=== PATIENT | female | born 2000 | race Caucasian/White ===

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

== ENCOUNTER 2018-01-05 11:50 | Emergency (ER) | payer OTHER ==
[2018-01-05 13:49] LABS: AMORPHOUS SEDIMENT RFX SMALL (NEGATIVE); KETONE, URINE AUTO RFX NEGATIVE (NEGATIVE); MUCUS, URINE RFX SMALL (NEGATIVE); NITRITE, URINE AUTO RFX NEGATIVE (NEGATIVE); RBC, URINE AUTO RFX 2 /HPF (0-3); SPECIFIC GRAVITY UR AUTO RFX 1.021 (1.002-1.035); SQUAM EPITHELIAL CELL UR AURFX 4 /HPF (0-6); WBC, URINE AUTO RFX 2 /HPF (0-3)
[2018-01-05 13:50] LABS: BASO % 0.2 % (0.0-1.0); EOS # 0.2 10^3/uL (0.0-0.50); EOS % 1.9 % (0.0-3.0); HEMATOCRIT 36.9 % (36.0-47.0); HEMOGLOBIN 12.2 g/dl (12.0-16.0); IMMATURE GRANULOCYTE % 0.3 % (0-3.0); LYMPH % 17.1 % (24.0-44.0); MEAN CORPUSCULAR HGB CONC 33.1 g/dl (32.0-36.5); MEAN CORPUSCULAR VOLUME 78.5 fl (80.0-96.0); MONO # 0.7 10^3/uL (0.0-0.8); MONO % 5.7 % (0.0-5.0); NEUTROPHILS # 8.8 10^3/uL (1.8-7.7); NEUTROPHILS % 74.8 % (36.0-66.0); PLATELET COUNT, AUTOMATED 252 10^3/uL (150-450); RED CELL DISTRIBUTION WIDTH 13.6 % (11.5-14.5); WHITE BLOOD COUNT 11.8 10^3/uL (4.0-10.0)
[2018-01-05] MEDS: NS 1,000 ML IV (13:56)
[2018-01-05 14:41] LABS: ALBUMIN 3.4 GM/DL (3.2-5.2); ALBUMIN/GLOBULIN RATIO 0.89 (1.00-1.93); ALKALINE PHOSPHATASE 62 U/L (45-117); ALT/SGPT 16 U/L (12-78); ANION GAP 10 MEQ/L (8-16); AST/SGOT 16 U/L (7-37); BILIRUBIN,DIRECT < 0.1 MG/DL (0.0-0.2); BILIRUBIN,TOTAL 0.2 MG/DL (0.2-1.0); BLOOD UREA NITROGEN 9 MG/DL (7-18); CALCIUM LEVEL 8.8 MG/DL (8.5-10.1); CARBON DIOXIDE LEVEL 24 MEQ/L (21-32); CHLORIDE LEVEL 104 MEQ/L (98-107); GLUCOSE, FASTING 86 MG/DL (70-100); HCG, SERUM QUANTITATIVE 28363 MIU/ML; POTASSIUM SERUM 3.3 MEQ/L (3.5-5.1); SODIUM LEVEL 138 MEQ/L (136-145); TOTAL PROTEIN 7.2 GM/DL (6.4-8.2)
[2018-01-05 14:45] LABS: LEUKOCYTE ESTERASE UR AUTO RFX 2+ (NEGATIVE)
== END 2018-01-05 14:59 | disposition home or self-care (01) ==
LOC: M ED 11:50
DX: O99.282 Endocrine, nutritional and metabolic diseases complicating pregnancy, second trimester (principal); E86.0 Dehydration; Z3A.15 15 weeks gestation of pregnancy
CPT/HCPCS: 80076

== ENCOUNTER 2018-03-20 19:35 | Outpatient (CLI) | payer OTHER | END 2018-03-20 21:00 | disposition home or self-care (01) | LOC: M LDO 19:35 | DX: O47.02 False labor before 37 completed weeks of gestation, second trimester (principal); Z3A.26 26 weeks gestation of pregnancy | CPT/HCPCS: G0463 ==

== ENCOUNTER 2018-05-03 12:46 | Outpatient (CLI) | payer OTHER ==
[2018-05-03] MEDS ORDERED: LR 1,000 ML IV (13:30)
[2018-05-03] MEDS: LR 500 ML IV (13:43)
[2018-05-03] MEDS ORDERED: ONDANSETRON 4MG/2ML VIAL (J2405) IV (13:45)
== END 2018-05-03 15:39 | disposition home or self-care (01) ==
LOC: M LDO 12:46
DX: O99.89 Other specified diseases and conditions complicating pregnancy, childbirth and the puerperium (principal); Z3A.32 32 weeks gestation of pregnancy; R11.2 Nausea with vomiting, unspecified; R42 Dizziness and giddiness; R19.7 Diarrhea, unspecified; O99.613 Diseases of the digestive system complicating pregnancy, third trimester
CPT/HCPCS: 59025

== ENCOUNTER 2018-05-26 12:35 | Outpatient (CLI) | payer OTHER | END 2018-05-26 14:35 | disposition home or self-care (01) | LOC: M LDO 12:35 | DX: O26.893 Other specified pregnancy related conditions, third trimester (principal); Z3A.35 35 weeks gestation of pregnancy; O99.343 Other mental disorders complicating pregnancy, third trimester; O99.613 Diseases of the digestive system complicating pregnancy, third trimester; F32.9 Major depressive disorder, single episode, unspecified; K21.9 Gastro-esophageal reflux disease without esophagitis; O98.313 Other infections with a predominantly sexual mode of transmission complicating pregnancy, third trimester | CPT/HCPCS: 59025 ==

== ENCOUNTER 2018-06-24 04:19 | Outpatient (CLI) | payer OTHER | END 2018-06-24 05:55 | disposition home or self-care (01) | LOC: M LDO 04:19 | DX: O47.1 False labor at or after 37 completed weeks of gestation (principal); Z3A.39 39 weeks gestation of pregnancy | CPT/HCPCS: 59025 ==

== ENCOUNTER 2018-06-24 07:15 | Outpatient (CLI) | payer OTHER | END 2018-06-24 08:54 | disposition home or self-care (01) | LOC: M LDO 07:15 | DX: O47.1 False labor at or after 37 completed weeks of gestation (principal); Z3A.39 39 weeks gestation of pregnancy; O99.343 Other mental disorders complicating pregnancy, third trimester; O98.313 Other infections with a predominantly sexual mode of transmission complicating pregnancy, third trimester; A74.9 Chlamydial infection, unspecified; O99.613 Diseases of the digestive system complicating pregnancy, third trimester; K21.9 Gastro-esophageal reflux disease without esophagitis; O99.820 Streptococcus B carrier state complicating pregnancy | CPT/HCPCS: 59025 ==

== ENCOUNTER 2018-10-07 12:20 | Emergency (ER) | payer OTHER ==
[2018-10-07 12:48] LABS: KETONE, URINE AUTO RFX NEGATIVE (NEGATIVE); MUCUS, URINE RFX SMALL (NEGATIVE); NITRITE, URINE AUTO RFX NEGATIVE (NEGATIVE); RBC, URINE AUTO RFX 2 /HPF (0-3); SPECIFIC GRAVITY UR AUTO RFX 1.018 (1.002-1.035); SQUAM EPITHELIAL CELL UR AURFX 2 /HPF (0-6)
[2018-10-07 12:55] LABS: LEUKOCYTE ESTERASE UR AUTO RFX 2+ (NEGATIVE); WBC, URINE AUTO RFX 11 /HPF (0-3)
[2018-10-07] MEDS: AZITHROMYCIN 250 MG TAB PO (15:48)
[2018-10-07] MEDS: cefTRIAXone SOD 250 MG VIAL (J0696) IM (15:49)
[2018-10-07 16:24] LABS: CHLAMYDIA DNA AMPLIFICATION NEGATIVE (NEGATIVE); GC DNA AMPLIFICATION NEGATIVE (NEGATIVE)
== END 2018-10-07 15:53 | disposition home or self-care (01) ==
LOC: M ED 12:20
DX: N30.90 Cystitis, unspecified without hematuria (principal); N89.8 Other specified noninflammatory disorders of vagina; F33.9 Major depressive disorder, recurrent, unspecified
CPT/HCPCS: J0696

== ENCOUNTER 2018-12-14 10:47 | Emergency (ER) | payer OTHER ==
[~2018-12-14] VITALS: Ht 165.1 cm; Wt 76.4 kg
[~2018-12-14 10:47] MED LIST: ANUS2.5C2 TOP; BENA25CA4 PO; CIPR-249 PO; COLA100C5 PO; DIBU1OIN TOP; DIFL150T PO; IBUP-1114 PO; KEFL500C17 PO; MAPA500T2 PO; MOM30SS PO; PREN1TAB11 PO; PREN29TA4 PO; ZOFR4TAB14 PO; cranberry PO
[2018-12-14] MEDS ORDERED: NS 1,000 ML IV ONE (11:00)
[2018-12-14 11:19] LABS: BASO % 0.3 % (0.0-1.0); EOS # 0.1 10^3/uL (0.0-0.50); EOS % 1.2 % (0.0-3.0); HEMOGLOBIN 12.8 g/dl (12.0-15.5); LYMPH # 1.7 10^3/uL (1.5-6.5); LYMPH % 27.8 % (24.0-44.0); MEAN CORPUSCULAR HEMOGLOBIN 25.6 pg (27.0-33.0); MONO # 0.4 10^3/uL (0.0-0.8); MONO % 7.2 % (0.0-5.0); NEUTROPHILS # 3.8 10^3/uL (1.8-7.7); NEUTROPHILS % 63.3 % (36.0-66.0); PLATELET COUNT, AUTOMATED 265 10^3/uL (150-450)
[2018-12-14 11:59] LABS: ALBUMIN 3.6 GM/DL (3.2-5.2); ALT/SGPT 17 U/L (12-78); BILIRUBIN,TOTAL 0.4 MG/DL (0.2-1.0); BLOOD UREA NITROGEN 10 MG/DL (7-18); CALCIUM LEVEL 8.9 MG/DL (8.5-10.1); CARBON DIOXIDE LEVEL 25 MEQ/L (21-32); CHLORIDE LEVEL 106 MEQ/L (98-107); CREATININE FOR GFR 0.48 MG/DL (0.55-1.30); GLUCOSE, FASTING 78 MG/DL (70-100); HCG, SERUM QUANTITATIVE 58267 MIU/ML; POTASSIUM SERUM 4.2 MEQ/L (3.5-5.1); SODIUM LEVEL 138 MEQ/L (136-145); TOTAL PROTEIN 7.5 GM/DL (6.4-8.2)
--- NOTE | 2018-12-14 12:35 | REP ---
EMERGENCY FIRST TRIMESTER OBSTETRIC SONOGRAPHY: HISTORY: Vaginal bleeding. FINDINGS: Transabdominal and endovaginal scanning are performed. A single living intrauterine gestation is seen. The crown-rump length of the embryonic pole is 16 mm. This corresponds with a gestational age estimate of 7 weeks and 6 days. heart rate is recorded at 160 beats per minute. There is a 2.6 x 1.0 x 0.9 cm subchorionic hemorrhage to the right of the sac. There is a cyst in the maternal right ovary measuring 0.7 cm along with a trace of fluid. IMPRESSION: Viable single intrauterine gestation at 7-week 6 days by crown-rump length. A 2.6 x 1.0 x 0.9 cm subchorionic hemorrhage is seen. No other complication is identified. AMANDA by today's sonography July 27, 2019. Electronically Signed by Waldo Betancourt MD 12/14/2018 05:15 P
[2018-12-14 13:02] VITALS: BP 115/60
== END 2018-12-14 13:03 | disposition home or self-care (01) ==
LOC: M ED 10:47
DX: O99.89 Other specified diseases and conditions complicating pregnancy, childbirth and the puerperium (principal); I60.9 Nontraumatic subarachnoid hemorrhage, unspecified

== ENCOUNTER 2018-12-19 10:42 | Emergency (ER) | payer OTHER ==
[~2018-12-19] VITALS: Ht 165.1 cm; Wt 75.0 kg
[2018-12-19] MEDS ORDERED: NS 1,000 ML IV ONE (12:45)
[2018-12-19] MEDS ORDERED: METOCLOPRAMIDE INJ 10MG/2ML VIAL (J2765) IV ONE (12:45)
[2018-12-19 13:17] LABS: BASO % 0.2 % (0.0-1.0); EOS # 0.1 10^3/uL (0.0-0.50); HEMATOCRIT 41.1 % (36.0-47.0); HEMOGLOBIN 13.1 g/dl (12.0-15.5); LYMPH # 2.2 10^3/uL (1.5-6.5); LYMPH % 26.6 % (24.0-44.0); MEAN CORPUSCULAR HEMOGLOBIN 25.5 pg (27.0-33.0); MEAN CORPUSCULAR HGB CONC 31.9 g/dl (32.0-36.5); MEAN CORPUSCULAR VOLUME 80.1 fl (80.0-96.0); MONO # 0.5 10^3/uL (0.0-0.8); MONO % 5.7 % (0.0-5.0); NEUTROPHILS # 5.4 10^3/uL (1.8-7.7); NEUTROPHILS % 66.1 % (36.0-66.0); PLATELET COUNT, AUTOMATED 281 10^3/uL (150-450); RED BLOOD COUNT 5.13 10^6/uL (4.00-5.40); WHITE BLOOD COUNT 8.2 10^3/uL (4.0-10.0)
[2018-12-19 13:37] LABS: BLOOD UREA NITROGEN 7 MG/DL (7-18); CALCIUM LEVEL 9.1 MG/DL (8.5-10.1); CARBON DIOXIDE LEVEL 25 MEQ/L (21-32); CHLORIDE LEVEL 104 MEQ/L (98-107); CREATININE FOR GFR 0.46 MG/DL (0.55-1.30); GLUCOSE, FASTING 90 MG/DL (70-100); POTASSIUM SERUM 4.3 MEQ/L (3.5-5.1); SODIUM LEVEL 137 MEQ/L (136-145)
[2018-12-19] MEDS ORDERED: UNIS25TA3 PO (13:56)
[2018-12-19] MEDS ORDERED: PYRI25TA4 PO (13:56)
[2018-12-19 14:06] VITALS: BP 119/83
== END 2018-12-19 14:26 | disposition home or self-care (01) ==
LOC: M ED 10:42
DX: O21.9 Vomiting of pregnancy, unspecified (principal); Z3A.00 Weeks of gestation of pregnancy not specified
CPT/HCPCS: 80048; 81001; 85025; 96374; 99284; J2765

== ENCOUNTER 2019-01-30 09:09 | Emergency (ER) | payer OTHER ==
[~2019-01-30] VITALS: Ht 165.1 cm; Wt 75.9 kg
[~2019-01-30 09:09] MED LIST changes: +PYRI25TA4 PO; +UNIS25TA3 PO
[2019-01-30] MEDS ORDERED: otc prenatal (09:14)
[2019-01-30 10:00] LABS: BASO % 0.1 % (0.0-1.0); EOS # 0.1 10^3/uL (0.0-0.50); HEMATOCRIT 39.7 % (36.0-47.0); HEMOGLOBIN 12.8 g/dl (12.0-15.5); LYMPH # 1.7 10^3/uL (1.5-6.5); LYMPH % 22.1 % (24.0-44.0); MEAN CORPUSCULAR HEMOGLOBIN 25.6 pg (27.0-33.0); MEAN CORPUSCULAR HGB CONC 32.2 g/dl (32.0-36.5); MEAN CORPUSCULAR VOLUME 79.4 fl (80.0-96.0); MONO # 0.4 10^3/uL (0.0-0.8); MONO % 5.5 % (0.0-5.0); NEUTROPHILS # 5.4 10^3/uL (1.8-7.7); PLATELET COUNT, AUTOMATED 208 10^3/uL (150-450); WHITE BLOOD COUNT 7.7 10^3/uL (4.0-10.0)
--- NOTE | 2019-01-30 11:15 | REP ---
OB ULTRASOUND: 01/30/2019 COMPARISON: First trimester ultrasound 12/14/2018. CLINICAL HISTORY: Vaginal bleeding. 14 weeks 5 days by history, and initial ultrasound. Transabdominal imaging shows a single intrauterine gestation in a transverse lie with head towards the maternal right. Anterior grade 0 placenta without previa or abruption. Amniotic fluid volume is visually normal. The cervix appears elongated and closed. motion was observed and heart rate is 152 bpm. Biometry: BPD 2.6 cm = 14 weeks 4 days HC 10 cm = 14 weeks 4 days AC 8.5 cm = 14 weeks 5 days FL 1.5 cm = 14 weeks 2 days HL 1.5 cm = 14 weeks 1 day. This gives average ultrasound age 14 weeks 3 days or EDC 07/28/2019, which corresponds well to the initial ultrasound and LMP dating 07/26/2019. Measure ratios are all in the normal range. IMPRESSION: 1. Single intrauterine gestation in transverse lie with head to the maternal right side. 2. Cervix appears elongated and closed. 3. Visually normal amniotic fluid volume with an anterior grade 0 placenta without previa or abruption. 4. Heart rate 152 and regular. Size and dates show normal interval growth. 14 weeks 3 days by today's ultrasound, 14 weeks 5 days by first trimester ultrasound and LMP with EDC 07/26/2019. Electronically Signed by Napoleon Fischer MD 01/30/2019 07:46 P
[2019-01-30 11:43] VITALS: BP 125/68
[2019-01-30 12:53] LABS: CHLAMYDIA DNA AMPLIFICATION NEGATIVE (NEGATIVE); GC DNA AMPLIFICATION NEGATIVE (NEGATIVE)
== END 2019-01-30 11:43 | disposition home or self-care (01) ==
LOC: M ED 09:09
DX: O26.852 Spotting complicating pregnancy, second trimester (principal); Z3A.14 14 weeks gestation of pregnancy

== ENCOUNTER 2019-07-30 08:46 | Inpatient (IN) | payer OTHER ==
[2019-07-30] VITALS (50 sets, daily range): BP systolic 116–180; BP diastolic 58–105
[~2019-07-30] VITALS: Ht 165.1 cm; Wt 94.5 kg
[~2019-07-30 08:46] MED LIST changes: +otc prenatal
[2019-07-30] MEDS ORDERED: LACTATED RINGER'S 1000 ML IV STA (09:03)
[2019-07-30] MEDS ORDERED: PENICILLIN G POTASSIUM IV 5 MU in D5W MINI-BAG PLUS 100 ML IV STA (09:03)
[2019-07-30] MEDS ORDERED: PRENTAB9 PO (09:06)
[2019-07-30] MEDS ORDERED: LR 1,000 ML IV SCH (09:15)
[2019-07-30 09:30] LABS: HEMOGLOBIN 11.9 g/dl (12.0-15.5); MEAN CORPUSCULAR HEMOGLOBIN 22.4 pg (27.0-33.0); MEAN CORPUSCULAR HGB CONC 31.3 g/dl (32.0-36.5); MEAN CORPUSCULAR VOLUME 71.4 fl (80.0-96.0); PLATELET COUNT, AUTOMATED 177 10^3/uL (150-450); RED BLOOD COUNT 5.32 10^6/uL (4.00-5.40); WHITE BLOOD COUNT 10.3 10^3/uL (4.0-10.0)
[2019-07-30] MEDS ORDERED: FENTANYL 2MCG/ML ROPIVACAINE 0.2% IN 0.9% NACL 100ML IVBAG As Ordered ONE (09:36)
[2019-07-30 09:53] LABS: ALT/SGPT 13 U/L (12-78); BILIRUBIN,TOTAL 0.3 MG/DL (0.2-1.0); CREATININE FOR GFR 0.52 MG/DL (0.55-1.30); GLOMERULAR FILTRATION RATE > 60.0 (>60); LDH LACTATE DEHYDROGENASE 143 U/L (84-246); URIC ACID 2.5 MG/DL (2.6-6.0)
--- NOTE | 2019-07-30 10:09 | HPEPDOC ---
Obstetrical History & Physical General Date of Admission Jul 30, 2019 at 09:02 History of Present Illness OB Considerations: - Close Interval - GBS positive - no PCN allergy - Active Duty Mariam is a 19yo at 40+4wks by LMP c/w 12 US (AMANDA [id number]) presents to L&D in labor. She has been codi, and reports that the got closer together at 0500. She was noted to have 2 severe range blood pressures, followed by normal blood pressure. She denies headache, vision changes, RUQ pain, LOF. Reports active movement. course complicated by the above problems. Chief Complaint: Contractions, term Information Provided By: Patient Age: 19 : 2 Term: 1 Pre-term: 0 Abortions: 0 Livin Care Care: Good Care Dating Final EDC: Jul 26, 2019 Past Medical History Past Obstetrical History : Past Obstetrical History: Primgravida Gestation: 40 Type of Delivery: Spontaneous Vaginal Del. 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 Past Medical History Medical History History of Depression Surgical History: Denies/None, Clarks teeth Family History Significant Family History: No pertinent family hx Social History Marital Status: Single Family situation: Spouse/partner home Psychosocial History: Depression * Smoker: non-smoker Alcohol: Denies Drugs: denies Imunizations Tdap status: current Influenza Status: declined Allergies Coded Allergies: No Known Allergies (Verified Allergy, Unknown, 07/30/19) Medications Scheduled No.137/Iron/Folic Acd ( Vitamin Tablet) 1 Each Tablet, 1 TAB PO DAILY Miscellaneous Medications [otc ] Physical Examination Physical Examination GENERAL: Alert and oriented times three, painfully codi. ABDOMEN: Gravid and non-tender to touch. FETUS: Is vertex (VTX) by sterile vaginal examination (SVE), fetus is vertex (VTX) by Des. EXTREMITIES: No edema. EFW 3600gm Vital Signs/I&O 2 severe range blood pressures, 1 normal range, afebrile, tachycardic (108 bpm) Laboratory Data 24H LABS Laboratory Tests 2 07/30/19 09:05: Serology Scanned Report Hepatitis B Testing CBC/BMP HCT 37.9 PLT 216 Urine Culture: Other (GBS) Pertinent Laboratoy Data Blood Type: A+ RBC Antibody Screen: Negative HIV: Negative Hepatitis B: Negative Hepatitis C: Unknown Rapid Plasma Reagin: Nonreactive Rubella: Immune Varicella: Immune Chlamydia/Gonorrhea: Negative Group B Streptococcus: Negative Quad Screen Test: Declined Cystic Fibrosis: Negative Anatomy Ultrasound Placenta Location: Posterior Normal Anatomy: Yes Placenta Previa: No Steroid Therapy Steroid Therapy: No Vaginal Examination Dilation: 6 cm Effacement: 100% Station: 0 Cervical Consistency: Soft Cervical Position: Anterior Presentation: Cephalic presentation Position: Vertex (occiput) Assessment Heart Rate (FHR): 130 Variability: Moderate Accelerations: Positive Decelerations: None Tocometer Contractions: Yes Frequency: regular, every 1-3 min. Duration: greater than 60 seconds Strength: palpated as strong Multi-drug resistant Organism: No history of MDRO Assessment/Plan Assessment Mariam is a 19yo at 40+4wks by LMP c/w 12 US (AMANDA [id number]) presents to L&D in labor with episodic severe range blood pressures. No symptoms of Pre Eclampsia. Plan Admit and orient. 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 If persistently severe range blood pressures (>160 and/or >110), will treat with Labetalol 20mg IV x1. Urine Cr/Pr ordered to assess of pre eclampsia. However, if persistent severe range blood pressure without proteinuria, will treat as Pre Eclampsia with Severe features per ACOG practice bulletin 202. Diet: [clears]. Group B Streptococcus (GBS) [Positive] - PCN ordered. Labs and intravenous (IV) per unit protocol. Pre Eclampsia Profile ordered and reviewed WNL. Urine Spot ordered. Counseled on Pitocin and induction of labor (IOL). Lactated Ringers (LR): Bolus [500] mL, then at [125] mL/hr. Desires Epidural. Recheck in 4 hours from PCN start or sooner if clinically indicated. Rose Lamas DO Labor and Delivery Counseling Discussed admission with patient. Discussed R/B/I/A. Discussed induction methods to include Green Balloon and Oxytocin. Discussed monitoring with patient, to include internal monitors (FSE and IUPC) and indications. Discussed blood transfusions and indications/risks - patient would accept. Discussed vaginal delivery and indicated/risk of operative vaginal delivery. Discussed indications for section. Patient verbally consented to delivery and verbalized understanding. ROSE LAMAS DO Jul 30, 2019 10:08
[2019-07-30] MEDS: FENTANYL/ROPIVACAINE/NACL BAG 100 ML EPIDURAL SCH ×2 (10:11→17:18)
[2019-07-30] MEDS ORDERED: LABETALOL HCL 100 MG/20 ML VIAL IV STA ×4 (10:16→21:57)
[2019-07-30] MEDS ORDERED: EPIDURAL/PCA KEYS XX PRN (11:00)
[2019-07-30] MEDS ORDERED: NALOXONE INJ 0.4 MG/1 ML VIAL (J2310) IV PRN (11:00)
[2019-07-30] MEDS ORDERED: EPIDURAL COMMENT XX SCH (11:00)
[2019-07-30] MEDS ORDERED: LACTATED RINGER'S 1000 ML IV PRN (11:00)
[2019-07-30] MEDS ORDERED: ONDANSETRON 4MG/2ML VIAL (J2405) IV PRN ×2 (11:00→19:00)
[2019-07-30] MEDS ORDERED: ePHEDrine SULFATE 25 MG/5 ML(5MG/ML) SYRINGE IV PRN (11:00)
[2019-07-30] MEDS ORDERED: REFRIGERATOR IV KEYS XX PRN (11:00)
[2019-07-30] MEDS ORDERED: MAG Sulf (L&D) 4 GM/100 ML 4 GM in APPROPRIATE DILUENT 1 EA IV ONE (11:00)
[2019-07-30] MEDS ORDERED: diphenhydrAMINE INJ 50MG/ML VIAL (J1200) IV PRN (11:00)
[2019-07-30] MEDS: MAG Sulf (OBGYN) 20GM/500ML 20,000 MG in APPROPRIATE DILUENT 1 EA IV SCH ×2 (11:12→21:11)
[2019-07-30 11:15] LABS: CREATININE,RANDOM URINE 91.3 MG/DL; TOTAL PROTEIN,RANDOM URINE 15.2 MG/DL (0.0-12.0)
[2019-07-30] MEDS: PENICILLIN G POTASSIUM IV 2.5 MU in APPROPRIATE DILUENT 1 EA IV SCH ×2 (13:30→17:25)
[2019-07-30] MEDS ORDERED: AZITHROMYCIN INJ 500 MG, VIAL MATE ADAPTER 1 EACH in D5W 250 ML IV ONE (14:45)
--- NOTE | 2019-07-30 14:47 | IPNPDOC ---
Text Note Date of Service The patient was seen on 07/30/19. NOTE Went to check patient and discuss tracing. Discussed that I was unable to augment her labor due to recurrent variable decelerations with contractions, that resolved with Pitocin stop, but not with conservative management of position changes and IVFs. She is 5/50/-2 from Green Catheter which need to be deflated by 40ml of fluid prior to delivery of the balloon. I discussed that we could try IUPC but if unable to correct variables would result in section for nonaugmentable tracing with persistent category II tracing. She declines IUPC and desired to proceed with section with Category II tracing. R/B/I/A were reviewed with the patient and consent was obtained. All questions were answered at this time. VS,Kamila, I+O VS, Kamila, I+O Laboratory Tests 07/30/19 09:16 Red Blood Count 5.32, Mean Corpuscular Volume 71.4 L, Mean Corpuscular Hemoglobin 22.4 L, Mean Corpuscular Hemoglobin Concent 31.3 L, Red Cell Distribution Width 15.5 H, Aspartate Amino Transf (AST/SGOT) 13, Alanine Aminotr ansferase (ALT/SGPT) 13, Lactate Dehydrogenase 143, Total Bilirubin 0.3, Uric Acid 2.5 L Vital Signs Date Time Temp Pulse Resp B/P (MAP) Pulse Ox O2 Delivery O2 Flow Rate FiO2 07/30/19 13:17 84 18 138/76 (96) 07/30/19 10:35 97.3 KP LAMAS. DO Jul 30, 2019 14:47
[2019-07-30] MEDS ORDERED: BICITRA 30ML SOLN UDC PO ONE (15:15)
[2019-07-30] MEDS ORDERED: OXYTOCIN 30 UNITS IN 0.9% NaCl 500ML IV BAG (J2590) As Ordered ONE (16:50)
--- NOTE | 2019-07-30 17:11 | IPNPDOC ---
Text Note Date of Service The patient was seen on 07/30/19. NOTE Went to check patient after GBS adequate treatment. Comfortable and resting with epidural. Denies headache, vision changes, RUQ pain. She denies chest pain, shortness of breath. VS: normotensive to mild range, nontachycardic, afebrile GEN: WNWD, NAD, A&O CV: RRR no m/g/r RESP: CTAB no w/r/r ABD: Soft, Gravid, NT EXT: no edema NEURO: +2 bilateral Upper Extremities DTRs DCE 9/100/0 AROM clear 1637 [id number] A/P: Pre Eclampsia with Severe Features without proteinuria in the setting of persistent severe range blood pressures requiring 20mg IV Labetalol. Currently mild range to normotensive and on Magnesium without s/sx of toxicity. Cat I FHT. - Continue to monitor/ VS per Pre E protocol - IVFs per Pre E protocol - Continue Magnesium 2gm/hr, mag checks q 4-6hrs - Continue PCN for GBS prophylaxis, currently adequately treated - Consider pitocin as indicated for augment labor - Recheck in 2 hours or sooner if clinically indicated Rose Lamas DO VS,Kamila, I+O VS, Fatimahe, I+O Laboratory Tests 07/30/19 09:16 Red Blood Count 5.32, Mean Corpuscular Volume 71.4 L, Mean Corpuscular Hemoglobin 22.4 L, Mean Corpuscular Hemoglobin Concent 31.3 L, Red Cell Distribution Width 15.5 H, Aspartate Amino Transf (AST/SGOT) 13, Alanine Aminotransferase (ALT/SGPT) 13, Lactate Dehydrogenase 143, Total Bilirubin 0.3, Uric Acid 2.5 L Vital Signs Date Time Temp Pulse Resp B/P (MAP) Pulse Ox O2 Delivery O2 Flow Rate FiO2 07/30/19 16:18 96 18 142/82 (102) 07/30/19 13:47 98.0 ROSE LAMAS DO Jul 30, 2019 17:11
[2019-07-30] MEDS ORDERED: IBUPROFEN 800 MG TAB PO PRN (19:00)
[2019-07-30] MEDS ORDERED: ACETAMINOPHEN 500 MG TAB PO PRN (19:00)
[2019-07-30] MEDS ORDERED: PROMETHAZINE 25 MG TAB PO PRN (19:00)
[2019-07-30] MEDS ORDERED: RHOGAM 300 MCG (1500 IU) INJ (J2790) IM SCH (19:00)
[2019-07-30] MEDS ORDERED: MEASLES,MUMPS,RUBELLA VACCINE INJ (MMR-II) (90707) SC SCH (19:00)
[2019-07-30] MEDS ORDERED: ACETAMINOPHEN TAB 650MG DOSE (2X325MG) PO PRN (19:00)
[2019-07-30] MEDS ORDERED: DIBUCAINE 1% OINTMENT 30GM TOP PRN (19:00)
[2019-07-30] MEDS ORDERED: METOCLOPRAMIDE INJ 10MG/2ML VIAL (J2765) IV PRN (19:00)
[2019-07-30] MEDS ORDERED: DOCUSATE SODIUM 100 MG CAP PO PRN (19:00)
--- NOTE | 2019-07-30 19:10 | DNPDOC ---
[facility] Delivery Note Delivery Note DATE OF DELIVERY: [30Jul2019] PREDELIVERY DIAGNOSIS: [40]-[4]/7 weeks' gestation and labor, Pre Eclampsia with Severe Features. POST DELIVERY DIAGNOSIS: Delivered. PROCEDURE: [Spontaneous vaginal delivery]. 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 ESTIMATED BLOOD LOSS: [200] mL. FINDINGS: weight [3530gms], Score [9]/[9], nuchal cord times [none]. DELIVERY SUMMARY: Patient is a [19]-year-old [2] now para [1] -[0]-[0]-[1] who was admitted to labor and delivery for labor and was diagnosed upon admission with Pre Eclampsia with Severe features on Magnesium. She progressed to c/c/+2. With good maternal effort, infant delivered OA, restituted CHIKA. No nuchal cord. Left Anterior shoulder delivered with gentle downward traction, follow by the rest of the body. The infant was placed on maternal abdomen and cried with stimulation. Delayed cord clamping was observed, then doubly clamped and cut by father of the baby. pitocin was started per protocol. The placenta delivered with gentle downward traction, intact, charles, 3 vessel cord, central insertion. Systematic inspection of the vagina and perineum and was noted to be intact. Mother and baby stable and bonding with physician left the room. Lap counts were correct x2. [id number]. DO CYDNEY Spicer CRYSTAL B. DO Jul 30, 2019 19:10
[2019-07-30] MEDS ORDERED: OXYTOCIN DRIP 30 UNITS in APPROPRIATE DILUENT 1 EA IV SCH (19:45)
[2019-07-30 23:11] LABS: HEMATOCRIT 36.3 % (36.0-47.0); HEMOGLOBIN 11.3 g/dl (12.0-15.5); MEAN CORPUSCULAR HEMOGLOBIN 22.4 pg (27.0-33.0); MEAN CORPUSCULAR HGB CONC 31.1 g/dl (32.0-36.5); MEAN CORPUSCULAR VOLUME 71.9 fl (80.0-96.0); PLATELET COUNT, AUTOMATED 194 10^3/uL (150-450); RED BLOOD COUNT 5.05 10^6/uL (4.00-5.40); WHITE BLOOD COUNT 16.3 10^3/uL (4.0-10.0)
[2019-07-30 23:33] LABS: ALT/SGPT 12 U/L (12-78); BILIRUBIN,TOTAL 0.2 MG/DL (0.2-1.0); CREATININE FOR GFR 0.64 MG/DL (0.55-1.30); GLOMERULAR FILTRATION RATE > 60.0 (>60); LDH LACTATE DEHYDROGENASE 181 U/L (84-246); MAGNESIUM LEVEL 4.5 MG/DL (1.8-2.4); URIC ACID 3.4 MG/DL (2.6-6.0)
[2019-07-31] VITALS (15 sets, daily range): BP systolic 123–187; BP diastolic 64–92
--- NOTE | 2019-07-31 06:08 | IPNPDOC ---
Progress Note Date of Service: Jul 31, 2019 Day#: 1 Progress Note SUBJECT: 19yo [id number] with Pre Eclampsia with Severe Features on Magnesium s/p at 1834 [id number]. She has been ambulating, Green Catheter in place, and tolerating advancing diet. Breast feeding but having latch issues. Reports lochia is [printing agent than normal period]. Patient has yet to ambulate. [Reports some cramping with . Denies any pain. Denies headache, RUQ pain, fevers. Reports being lightheaded]. Overnight, she had persistent severe range blood pressures requiring 140mg of IV Labetalol. OBJECTIVE: VITAL SIGNS: mild range blood pressures, afebrile. Alert and oriented times three. Clear to auscultation. Heart rate: Regular rate and rhythm, no murmurs, rubs or gallops. Abdomen: Fundus firm at U-1. Soft, Approriately TP. Neuro: +2/4 patellar DTRs, no clonus [Minimal] lochia. UOP: 0.97cc/kg/hr ASSESSMENT: 19yo [id number] with Pre Eclampsia with Severe Features on Magnesium s/p at 1834 [id number]. Mild range blood pressures, afebrile, hemodynamically stable with no evidence of infection. No evidence of Magnesium toxicity. She required 140mg of IV Labetalol overnight. PLAN: - Continue to monitor/ VS per Pre E protocol. - IVFs per Pre E protocol. - Consider repeat CBC, Pre Eclampsia labs and Mag Level ordered for 1120. - Continue Magnesium 2gm/hr, mag checks q 4-6hrs. - Continue Mag for 24hrs , stop at 1834 [id number]. - Tylenol and Motrin for pain. - Encourage breast feeding and ambulation. - [Depo provera] for contraception for now, desires BTL. - Follow up for BP check 2 days after discharge and at 2 weeks. - Schedule routine visit at 6 weeks. VS, I&O, 24H, Fishbone Vital Signs/I&O Vital Signs Date Time Temp Pulse Resp B/P (MAP) Pulse Ox O2 Delivery O2 Flow Rate FiO2 07/30/19 22:08 104 176/80 07/30/19 21:56 16 07/30/19 13:47 98.0 I&O- Last 24 Hours up to 6 AM 07/31/19 05:59 Intake Total 27560 ml Output Total 3950 ml Balance 7978 ml Laboratory Data 24H LABS Laboratory Tests 2 07/30/19 09:05: Serology Scanned Report Hepatitis B Testing 07/30/19 09:16: Nucleated Red Blood Cells % (auto) 0.0, Glomerular Filtration Rate > 60.0, Creatinine 0.52L, Aspartate Amino Transf (AST/SGOT) 13, Alanine Aminotransferase (ALT/SGPT) 13, Lactate Dehydrogenase 143, Total Bilirubin 0.3, Uric Acid 2.5L 07/30/19 10:38: Urine Random Creatinine 91.3, Urine Random Total Protein 15.2H 07/30/19 23:05: Nucleated Red Blood Cells % (auto) 0.0, Glomerular Filtration Rate > 60.0, Creat inine 0.64, Aspartate Amino Transf (AST/SGOT) 27, Alanine Aminotransferase (ALT/SGPT) 12, Lactate Dehydrogenase 181, Total Bilirubin 0.2, Uric Acid 3.4, Magnesium Level 4.5H CBC/BMP Laboratory Tests 07/30/19 09:16 Red Blood Count 5.32, Mean Corpuscular Volume 71.4 L, Mean Corpuscular Hemoglobin 22.4 L, Mean Corpuscular Hemoglobin Concent 31.3 L, Red Cell Distribution Width 15.5 H, Aspartate Amino Transf (AST/SGOT) 13, Alanine Aminotransferase (ALT/SGPT) 13, Lactate Dehydrogenase 143, Total Bilirubin 0.3, Uric Acid 2.5 L 07/30/19 23:05 Red Blood Count 5.05, Mean Corpuscular Volume 71.9 L, Mean Corpuscular Hemoglobin 22.4 L, Mean Corpuscular Hemoglobin Concent 31.1 L, Red Cell Distribution Width 15.6 H, Aspartate Amino Transf (AST/SGOT) 27, Alanine Aminotransferase (ALT/SGPT) 12, Lactate Dehydrogenase 181, Total Bilirubin 0.2, Uric Acid 3.4 KP LAMAS DO Jul 31, 2019 06:08
[2019-07-31] MEDS: MAG Sulf (OBGYN) 20GM/500ML 20,000 MG in APPROPRIATE DILUENT 1 EA IV SCH ×2 (07:30→16:37)
[2019-07-31] MEDS: PRENATAL VITAMINS CHEWABLE TABLET PO SCH (09:30)
[2019-07-31] MEDS: IBUPROFEN 600 MG TAB PO PRN ×2 (10:43→16:40)
[2019-07-31 19:55] LABS: HEMATOCRIT 34.9 % (36.0-47.0); HEMOGLOBIN 10.9 g/dl (12.0-15.5); MEAN CORPUSCULAR HEMOGLOBIN 22.3 pg (27.0-33.0); MEAN CORPUSCULAR HGB CONC 31.2 g/dl (32.0-36.5); MEAN CORPUSCULAR VOLUME 71.5 fl (80.0-96.0); PLATELET COUNT, AUTOMATED 203 10^3/uL (150-450); RED BLOOD COUNT 4.88 10^6/uL (4.00-5.40); WHITE BLOOD COUNT 8.8 10^3/uL (4.0-10.0)
[2019-07-31 20:22] LABS: ALBUMIN 2.2 GM/DL (3.2-5.2); ALT/SGPT 13 U/L (12-78); BILIRUBIN,TOTAL 0.1 MG/DL (0.2-1.0); BLOOD UREA NITROGEN 6 MG/DL (7-18); CALCIUM LEVEL 7.7 MG/DL (8.5-10.1); CARBON DIOXIDE LEVEL 25 MEQ/L (21-32); CHLORIDE LEVEL 106 MEQ/L (98-107); CREATININE FOR GFR 0.59 MG/DL (0.55-1.30); GLOMERULAR FILTRATION RATE > 60.0 (>60); GLUCOSE, FASTING 102 MG/DL (70-100); MAGNESIUM LEVEL 4.6 MG/DL (1.8-2.4); POTASSIUM SERUM 3.8 MEQ/L (3.5-5.1); SODIUM LEVEL 141 MEQ/L (136-145); TOTAL PROTEIN 6.4 GM/DL (6.4-8.2)
--- NOTE | 2019-07-31 22:32 | IPN ---
DATE: 07/31/2019 This lady is a 19-year-old 2, para 2 who was admitted at 40 and 4 weeks of gestation with contractions. She was noted to have had two severe range blood pressures. She did not have any headache or visual change or right upper quadrant pain. Her past obstetrical history is she had a spontaneous vaginal delivery of a male, uneventful. She does have a history depression, but she has no previous history of preeclampsia or eclampsia, or gestational or chronic hypertension. A pre-eclamptic profile was ordered and reviewed, and found to be within normal limits. She was counseled regarding severe persistent range blood pressures and that she would have IV labetalol plus mag sulfate and the urgency for delivery. She did eventually deliver, spontaneous vaginal delivery of a POP , scores of 9 and 9 at one and five minutes respectively. She then exhibited severe range blood pressures, was started on magnesium sulfate. She had a 4-gram loading dose followed by 2 grams an hour, the usual Green catheter, neurological watch and blood work was performed. She had 24-hour mag sulfate running and now is the time to evaluate whether or not to discontinue the mag sulfate. Looking at her vital signs, over the last 24 hours she had only one considered severe range blood pressure of 187/92, but she was having some pain, otherwise her blood pressures were in the mid range unit. Her lab values showed most recent ones: Hemoglobin 10.9, hematocrit 34.9 and platelets were 203. Her admitting hemoglobin 11.9, hematocrit 38.0, and platelets were 177. Her chemistry is pending. However, in reviewing her intake/output, she is in slight negative balance at minus 227 mL. Her total intake was 4173, her output was 4400. On examination presently, she appears to be awake, lucid, oriented to all krishnamurthy. Denies any headache, right upper quadrant pain, or visual disturbances. Her blood pressure at the present time is 138/85, respirations 18, pulse is 80, temperature is 97.2. She has no pedal edema. She has minimal reflexes because of her mag sulfate. Her mag level. last was 4.5. Her abdomen is soft, uterus 2 below. Lochia is moderate. Four quadrant bowel sounds are noted. She is otherwise normocephalic, atraumatic. Neck: Full range of motion. Pupils equal and reactive to light. Distal pulses are symmetric. No evidence of deep vein thrombosis (DVT), pulmonary embolism (PE), or superficial phlebitis. Chest is clear bilaterally to bases. No wheezes or rhonchi. She has no rashes, lesions or pruritus. No arthralgia or myalgia. No complaint of joint pain. No cough, shortness of breath or dyspnea on exertion. Our plan of management at the present time is to discontinue the Green catheter, to discontinue the mag sulfate, discontinue one of her IV locks. She has been eating all day and drinking well. Bowel sounds are active. She is passing gas and has not had a bowel movement yet. In summary, we have a term gestation with severe features of preeclampsia, presently on recovery, and we will reevaluate her in 24 hours. The patient was sent to care.
[2019-08-01] VITALS (7 sets, daily range): BP systolic 111–141; BP diastolic 60–89
--- NOTE | 2019-08-01 09:36 | IPN ---
DATE: 08/01/2019 This lady is a 19-year-old 2 now para 2, admitted at 44 weeks of gestation in spontaneous labor. Had a spontaneous vaginal delivery of a live infant weighing 3530 grams of 9 an d9 at one and five minutes respectively. She developed severe range blood pressures and pre-eclamptic features, was on magnesium sulfate for 24 hours. She was discontinued on her magnesium sulfate after 24 hours. On reviewing her vital signs, her blood pressures were all within normal range from at 2030 hours on07/31/2019 to present day. She had a mid-range blood pressure this morning [id number] at141/89, respirations 16, pulse 71, temperature 97.7. Her chemistry which was reviewed yesterday: Hemoglobin 10.9, hematocrit 34.9 and platelets were 203. Her chemistry indicated that her uric magnesium was within therapeutic range of 4.6. We had discontinued 2 grams per hour. Her BUN, creatinine and uric acids were all within normal limits. Our plan today is to monitor over the next 24 hours. If things go well, she will be discharged tomorrow with instructions regarding ongoing signs and symptoms of pre-eclampsia and elevated blood pressure. She will have a 1-week blood pressure check and then the 6-week check. Meds will be dispensed at discharge.
[2019-08-01] MEDS: IBUPROFEN 600 MG TAB PO PRN (19:46)
[2019-08-02 02:40] VITALS: BP 154/83
[2019-08-02] MEDS: IBUPROFEN 600 MG TAB PO PRN (05:19)
[2019-08-02 06:11] VITALS: BP 135/62
[2019-08-02] MEDS: PRENATAL VITAMINS CHEWABLE TABLET PO SCH (07:34)
[2019-08-02] MEDS ORDERED: IBUP80TA PO (08:24)
[2019-08-02] MEDS ORDERED: COLA100C5 PO (08:24)
[2019-08-02] MEDS ORDERED: ACET-683 PO (08:24)
--- NOTE | 2019-08-02 08:30 | DS.PDOC ---
Discharge Summary General Date of Admission Jul 30, 2019 at 09:02 Date of Discharge 08-02-2019 Attending Physician: KP LAMSA DO Discharge Summary PROCEDURES PERFORMED DURING STAY: [None]. ADMITTING DIAGNOSES: 1. [Labor at Term]. 2. [Pre Eclampsia with Severe Features]. DISCHARGE DIAGNOSES: 1. [Labor at Term]. 2. [Pre Eclampsia with Severe Features]. 3. [Single Live ]. 4. [Vaginal Delivery]. COMPLICATIONS/CHIEF COMPLAINT: LABOR. HISTORY OF PRESENT ILLNESS: [19]-year-old [2] now para [1]-[0]-[0]-[1] who was admitted to labor and delivery for labor and was diagnosed upon admission with Pre Eclampsia with Severe features on Magnesium. HOSPITAL COURSE: Mariam is a 19yo [id number] status post vaginal delivery complicated by Pre Eclampsia without Severe Features. She remained on Magnesium therapy for 24 hours . Since, she has remained normotensive to mild range blood pressures. Patient remained stable and afebrile throughout her hospital stay. She met all criteria for discharge on day 3. DISCHARGE MEDICATIONS: Please see below. ALLERGIES: Please see below. PHYSICAL EXAMINATION ON DISCHARGE: VITAL SIGNS: Please see below. GENERAL: [WNWD, NAD] HEENT: [EOMI] NECK: [Supple] ABDOMINAL EXAMINATION: [Soft, appropriately tender, Uterus @ U] EXTREMITIES: [trace edema] LABORATORY DATA: Please see below. PROGNOSIS: [Good] ACTIVITY: [As tolerated]. DIET: [Regular] DISPOSITION: To home. DISCHARGE PLAN/INSTRUCTIONS: - Discussed strict return precautions with patient - Encouraged - Encouraged hydration ITEMS TO FOLLOWUP ON ON OUTPATIENT: - Blood pressure check in 2 days and 2 weeks. - Follow up in 6 weeks visit DISCHARGE CONDITION: [Stable]. TIME SPENT ON DISCHARGE: Greater than [20] minutes. Vital Signs/I&Os Vital Signs Date Time Temp Pulse Resp B/P (MAP) Pulse Ox O2 Delivery O2 Flow Rate FiO2 08/02/19 06:11 98.5 70 16 135/62 (86) 08/01/19 18:04 99 Discharge Medications Scheduled No.137/Iron/Folic Acd ( Vitamin Tablet) 1 Each Tablet, 1 TAB PO DAILY, (Reported) Scheduled PRN Acetaminophen (Acetaminophen) 500 Mg Tablet, 1,000 MG PO Q6HP PRN for PAIN SCALE 6-10 Docusate Sodium (Colace) 100 Mg Capsule, 100 MG PO QHSP PRN for CONSTIPATION Ibuprofen (Ibuprofen) 800 Mg Tablet, 800 MG PO Q8HP PRN for PAIN SCALE 6-10 Miscellaneous Medications [otc ] , (Reported) Allergies Coded Allergies: No Known Allergies (Verified Allergy, Unknown, 07/30/19) KP LAMAS DO Aug 02, 2019 08:30
== END 2019-08-02 12:10 | disposition home or self-care (01) | DRG 807 ==
LOC: M LDO 08:46 → M LDI 09:02 → M OBS 07-31 20:24
PROVIDERS: ADMIT Obstetrics & Gynecology; ATTEND Obstetrics & Gynecology
PROC: 10E0XZZ Delivery of Products of Conception, External Approach (ICD-10-PCS; principal; 2019-07-30)
DX: O14.14 Severe pre-eclampsia complicating childbirth (principal); Z37.0 Single live birth; Z3A.40 40 weeks gestation of pregnancy; O99.824 Streptococcus B carrier state complicating childbirth; O48.0 Post-term pregnancy